=== PATIENT | male | born 1990 | race Caucasian/White ===

== ENCOUNTER 2018-03-28 02:45 | Emergency (ER) | payer BC, OTHER ==
--- NOTE | 2018-03-28 03:05 | EDM.PDOC ---
ED HPI GENERAL MEDICAL PROBLEM - General Stated Complaint: HARD TIME BREATHING WHEN COUGHTING Time Seen by Provider: 03/28/18 03:03 - History of Present Illness INITIAL COMMENTS - FREE TEXT/NARRATIVE: HISTORY AND PHYSICAL: History of present illness: The patient is a 28-year-old male with a long-standing history of asthma who has no provider either here or at home who does use preventative therapy including Singulair and dulera and presents with dry hacking intractable cough and trouble taking a deep breath while he is coughing since 4 PM yesterday.he patient states he was having a normal day yesterday when this started. Patient does work outdoors. He has had no fevers chills abdominal pain chest pain sore throat and has been eating and drinking normally.The patient says that the dry hacking cough is irritating and he feels that when he is having this spasm he cannot take a deep breath. Patient states that he does not have any seasonal allergies and is not taking anything [id number]. He says that he does hydrate and does not drink excessive amounts of caffeine and he only smokes occasionally. Review of systems: As per history of present illness and below otherwise all systems reviewed and negative. Past medical history: As per history of present illness and as reviewed below otherwise noncontributory. Surgical history: As per history of present illness and as reviewed below otherwise noncontributory. Social history: No reported history of drug or alcohol abuse. Family history: As per history of present illness and as reviewed below otherwise noncontributory. Physical exam: general: Well-developed well-nourished man who is nontoxic and vital signs are noted by me. A dry hacking cough is appreciated on my evaluation. HEENT: Atraumatic, normocephalic,, negative for conjunctival pallor or scleral icterus, mucous membranes moist, throat clear, neck supple, nontender, trachea midline.no cervical adenopathy or nuchal rigidity Lungs: Clear to auscultationwith some coarse breath sounds bilaterally, no wheezing or stridor no work of breathing, breath sounds equal bilaterally, chest nontender. Heart: S1S2, regular rate and rhythm no overt murmurs Abdomen: Soft, nondistended, nontender. NABS Pelvis: Stable nontender. Genitourinary: Deferred. Rectal: Deferred. Extremities: Atraumatic, full range of motion without defects or deficits. Neurovascular unremarkable. Neuro: Awake, alert, oriented. Cranial nerves II through XII unremarkable. Cerebellum unremarkable. Motor and sensory unremarkable throughout. Exam nonfocal. Diagnostics: [] Therapeutics: duo neb Solu-Medrol spacer and teaching Impression: acute asthmatic bronchitis Definitive disposition and diagnosis as appropriate pending reevaluation and review of above. chest area Pain Score (Numeric/FACES): 5 - Related Data Allergies Allergy/AdvReac Type Severity Reaction Status Date / Time Sulfa (Sulfonamide Allergy Other Verified 03/28/18 03:01 Antibiotics) Home Meds: Home Meds Albuterol [Ventolin HFA] 1 inh INH ASDIRECTED 03/28/18 [History] Fenofibrate 150 mg PO DAILY 03/28/18 [History] Fluticasone Propionate [Flonase Allergy Relief] 2 spray NASBOTH DAILY 03/28/18 [ History] Mometasone/Formoterol [Dulera 100-5 MCG] 1 inh INH DAILY 03/28/18 [History] Montelukast [Singulair] 10 mg PO DAILY 03/28/18 [History] Ranitidine [Zantac] 150 mg PO DAILY 03/28/18 [History] ED ROS GENERAL - Review of Systems Review Of Systems: ROS reveals no pertinent complaints other than HPI. ED EXAM, GENERAL - Physical Exam Exam: See Below (see dictation) Course - Vital Signs Last Recorded V/S: Last Vital Signs Temp 36.6 C 03/28/18 03:01 Pulse 96 03/28/18 03:01 Resp 18 03/28/18 03:01 BP 119/74 03/28/18 03:01 Pulse Ox 98 03/28/18 03:01 - Orders/Labs/Meds Orders: Active Orders 24 hr Category Date Time Status Communication Order [RC] STAT Care 03/28/18 03:12 Active RT Aerosol Therapy [RC] ASDIRECTED Care 03/28/18 03:13 Active Meds: Medications Discontinued Medications Generic Name Dose Route Start Last Admin Trade Name Freq PRN Reason Stop Dose Admin Albuterol/Ipratropium 3 ml 03/28/18 03:12 03/28/18 03:18 Duoneb 3.0-0.5 Mg/3 Ml NEB 03/28/18 03:13 3 ml ONETIME ONE Administration Methylprednisolone Sodium Succinate 125 mg 03/28/18 03:13 03/28/18 03:18 Solu-Medrol IM 03/28/18 03:14 125 mg ONETIME ONE Administration Departure - Departure Time of Disposition: 03:36 Disposition: Home, Self-Care 01 Condition: Good Clinical Impression: Acute asthmatic bronchitis - Discharge Information Referrals: PCP,None [Primary Care Provider] - Additional Instructions: The following information is given to patients seen in the emergency department who are being discharged to home. This information is to outline your options for follow-up care. We provide all patients seen in our emergency department with a follow-up referral. The need for follow-up, as well as the timing and circumstances, are variable depending upon the specifics of your emergency department visit. If you don't have a primary care physician on staff, we will provide you with a referral. We always advise you to contact your personal physician following an emergency department visit to inform them of the circumstance of the visit and for follow-up with them and/or the need for any referrals to a consulting specialist. The emergency department will also refer you to a specialist when appropriate. This referral assures that you have the opportunity for followup care with a specialist. All of these measure are taken in an effort to provide you with optimal care, which includes your followup. Under all circumstances we always encourage you to contact your private physician who remains a resource for coordinating your care. When calling for followup care, please make the office aware that this follow-up is from your recent emergency room visit. If for any reason you are refused follow-up, please contact the [facility] emergency department at and ask to speak to the emergency department charge nurse. [facility] Primary care- Internal Medicine and Family [address] [id number] Please call and follow-up with your provider at home or one of our providers for reevaluation and further care. Push hydration and use your albuterol as a rescue every 6 hours as needed with the spacer. Please take prednisone you have been prescribed and start that later on this afternoon. Use cough medicine only when you're at home and you want to go to sleep. Please start an over-the- counter allergy pill such as Melissa or Claritin and also use Flonase to promote nasal drainage. Sleep on 2 pillows to promote drainage. Return to ER as needed and as discussed - My Orders Last 24 Hours: My Active Orders 03/28/18 03:12 Communication Order [RC] STAT 03/28/18 03:13 RT Aerosol Therapy [RC] ASDIRECTED - Assessment/Plan Last 24 Hours: My Active Orders 03/28/18 03:12 Communication Order [RC] STAT 03/28/18 03:13 RT Aerosol Therapy [RC] ASDIRECTED
[2018-03-28] MEDS ORDERED: Albuterol/Ipratropium 3.0-0.5 MG/3 ML Neb Soln NEB ONE (03:12)
[2018-03-28] MEDS ORDERED: methylPREDNISolone Sodium Succinate 125 MG/2 ML SDV IM ONE (03:13)
== END 2018-03-28 03:45 | disposition home or self-care (01) ==
LOC: MW.ED 02:45
DX: J45.901 Unspecified asthma with (acute) exacerbation (principal); Z88.2 Allergy status to sulfonamides; Z79.899 Other long term (current) drug therapy
CPT/HCPCS: 94640; 96372; 99283; J2930